=== PATIENT | female | born 1955 | race African-American/Black ===

== ENCOUNTER 2025-05-21 17:47 | Emergency (ER) | payer MEDICARE, MEDICAID ==
[~2025-05-21] VITALS: Ht 154.9 cm; Wt 61.0 kg
[~2025-05-21 17:47] MED LIST: AMBIEN; DILANTIN; GABAPENTIN; LISINOPRIL; NASAL SPRAY; NORCO; SOMA; STOOL SOFTER
[2025-05-21 17:49] VITALS: O2SAT 97
[2025-05-21 18:34] LABS: BASOPHILS % 0.6 % (0.0-2.0); EOSINOPHILS % 3.8 % (0.0-5.0); HEMATOCRIT. 41.7 % (36.0-48.0); HEMOGLOBIN. 13.4 g/dL (12.0-16.0); LYMPHOCYTES % 21.9 % (20.0-50.0); MEAN PLATELET VOLUME 8.3 fl (7.4-10.4); MONOCYTES % 8.8 % (2.0-8.0); NEUTROPHILS % 64.9 % (40.0-76.0); PLATELET 150 x1000/uL (130-400); RED BLOOD CELL COUNT 4.83 mill/uL (4.2-5.4); RED CELL DISTRIBUTION WIDTH 13.4 % (11.6-14.6)
[2025-05-21 18:46] LABS: CREATININE 0.7 mg/dL (0.6-1.0); UREA NITROGEN BLOOD 9 mg/dL (9-23)
[2025-05-21] MEDS: ACETAMINOPHEN 500MG TABLET PO ONE (19:01)
[2025-05-21] MEDS ORDERED: TOPUD MT (20:22)
[2025-05-21 20:32] VITALS: BP 124/90; PULSE 68; RESP 14; TEMP 36.8; O2SAT 100
== END 2025-05-21 20:35 | disposition home or self-care (01) ==
LOC: ER 17:47
DX: R51.9 Headache, unspecified (principal); Z79.899 Other long term (current) drug therapy
CPT/HCPCS: 36415; 80048; 85025; 99284